=== PATIENT | male | born 1965 | race American Indian/Alaskan Native ===

== ENCOUNTER 2021-12-25 09:40 | Emergency (ER) | payer SELFPAY ==
[2021-12-25] MEDS ORDERED: dexAMETHasone 20 MG/5 ML VIAL IV ONE (12:51)
[2021-12-25] MEDS ORDERED: hydrALAZINE 20 MG/1 ML INJ IV ONE (12:54)
--- NOTE | 2021-12-25 13:39 | XRay Report ---
CHEST 1 VIEW 12/25/2021 1:08 PM INDICATION / CLINICAL INFORMATION: COUGH. COMPARISON: 08/31/20 FINDINGS: SUPPORT DEVICES: None. HEART / MEDIASTINUM: No significant abnormality. LUNGS / PLEURA: No significant pulmonary or pleural abnormality. No pneumothorax. ADDITIONAL FINDINGS: No significant additional findings. IMPRESSION: 1. No acute findings. No change. Signer Name: Rox Evans MD Signed: 12/25/2021 1:35 PM Workstation Name: [id number]
--- NOTE | 2021-12-25 13:50 | Cat Scan Report ---
CT HEAD WITHOUT CONTRAST INDICATION / CLINICAL INFORMATION: headache. TECHNIQUE: All CT scans at this location are performed using CT dose reduction for ALARA by means of automated exposure control. COMPARISON: CT and MRI dated 08/31/20 FINDINGS: HEMORRHAGE: None. EXTRA-AXIAL SPACES: Normal in size and morphology for the patient's age. VENTRICULAR SYSTEM: Normal in size and morphology for the patient's age. CEREBRAL PARENCHYMA: Moderate white matter hypodensities likely representing microangiopathy and smal l chronic infarcts. No acute territorial infarct. MIDLINE SHIFT / HERNIATION: None. CEREBELLUM / BRAINSTEM: No significant abnormality. ORBITS: Normal as visualized. SOFT TISSUES: No significant abnormality. SKULL: No significant abnormality. PARANASAL SINUSES / MASTOID AIR CELLS: Normal as visualized. ADDITIONAL FINDINGS: None. IMPRESSION: 1. No acute intracranial abnormality. 2. Chronic and age-related findings are unchanged. Signer Name: Rox Evans MD Signed: 12/25/2021 1:45 PM Workstation Name: [id number]
[2021-12-25 14:28] LABS: Basophils % (Auto) 0.4 % (0.0-1.8); Eosinophils # (Auto) 0.3 K/mm3 (0.0-0.4); Eosinophils % (Auto) 3.2 % (0.0-4.3); Hematocrit 43.6 % (35.5-45.6); Hemoglobin 14.8 gm/dl (11.8-15.2); Lymphocytes # (Auto) 2.6 K/mm3 (1.2-5.4); Mean Corpuscular HGB Conc 34 % (32-34); Mean Corpuscular Volume 89 fl (84-94); Monocytes # (Auto) 0.4 K/mm3 (0.0-0.8); Monocytes % (Auto) 4.6 % (0.0-7.3); Platelet Count 243 K/mm3 (140-440); Red Blood Count 4.88 M/mm3 (3.65-5.03); Red Cell Distribution Width 13.5 % (13.2-15.2)
[2021-12-25 14:42] LABS: Alanine Aminotransferase 12 units/L (7-56); Albumin 4.9 g/dL (3.9-5); Blood Urea Nitrogen 12 mg/dL (9-20); Calcium 9.6 mg/dL (8.4-10.2); Hemolysis Index 9
[2021-12-25 14:43] LABS: BUN/Creatinine Ratio 17
--- NOTE | 2021-12-25 14:58 | Emergency Department Report ---
ED General Adult HPI - General Chief complaint: Eye Problems Stated complaint: SWOLLEN EYEYS Source: patient, family Mode of arrival: Ambulatory Limitations: No Limitations - History of Present Illness Initial comments: Patient is a 56-year-old -[place] male with a history of stroke and hypertension, and was noncompliant with medications presents to the ED with complaint of bilateral eyelid swelling for the last 3 days. Patient states that the symptoms have worsened in the last 24 hours. Patient states that he is unsure of the etiology of the swelling of the eyelids. Patient denies vision loss or vision changes, nausea and vomiting, traumatic injury, fall, headache, nasal and sinus congestion, fever, chills, cough, sore throat, neck pain, back pain, dizziness, numbness and tingling or weakness of upper and lower extremities bilaterally. MD Complaint: Bilateral eyelid swelling -: Sudden, days(s) (3) Location: face (Bilateral eyelid swelling) Radiation: non-radiation Severity scale (0 -10): 0 Consistency: constant Improves with: none Worsens with: none Associated Symptoms: denies other symptoms. denies: chest pain, cough, diaph oresis, fever/chills, headaches, loss of appetite, malaise, rash, seizure, shortness of breath, syncope, weakness Treatments Prior to Arrival: none - Related Data Previous Rx's Medication Instructions Recorded Last Taken Type Aspirin 325 mg PO QDAY #30 tablet 09/01/20 Unknown Rx AtorvaSTATin [Lipitor] 40 mg PO QHS #30 tablet 12/25/21 Unknown Rx Metoprolol [Lopressor TAB] 25 mg PO BID #30 tablet 12/25/21 Unknown Rx Valsartan [Diovan] 160 mg PO BID #60 tablet 12/25/21 Unknown Rx hydroCHLOROthiazide [HCTZ] 25 mg PO QDAY #30 tablet 12/25/21 Unknown Rx predniSONE [Deltasone] 40 mg PO QDAY #10 tab 12/25/21 Unknown Rx Allergies Allergy/AdvReac Type Severity Reaction Status Date / Time No Known Allergies Allergy Unverified 08/31/20 07:34 ED Review of Systems ROS: Stated complaint: SWOLLEN EYEYS Other details as noted in HPI Constitutional: denies: chills, fever Eyes: other (Bilateral eyelid swelling and tearing). denies: eye pain, eye discharge, vision change ENT: denies: ear pain, throat pain Respiratory: denies: cough, orthopnea, shortness of breath, wheezing Cardiovascular: denies: chest pain, palpitations, edema, syncope Endocrine: no symptoms reported Gastrointestinal: denies: abdominal pain, nausea, vomiting, diarrhea Genitourinary: denies: urgency, dysuria Musculoskeletal: denies: back pain, joint swelling, arthralgia Skin: denies: rash, lesions Neurological: denies: headache, weakness, paresthesias Psychiatric: denies: anxiety, depression Hematological/Lymphatic: denies: easy bleeding, easy bruising ED Past Medical Hx - Past Medical History Hx Hypertension: Yes Hx CVA: Yes Hx Heart Attack/AMI: No Hx Liver Disease: No Hx Renal Disease: No Hx Asthma: Yes (childhood only) - Social History Smoking Status: Current Every Day Smoker - Medications Home Medications: Home Medications Medication Instructions Recorded Confirmed Last Taken Type Aspirin 325 mg PO QDAY #30 tablet 09/01/20 Unknown Rx AtorvaSTATin [Lipitor] 40 mg PO QHS #30 tablet 12/25/21 Unknown Rx Metoprolol [Lopressor TAB] 25 mg PO BID #30 tablet 12/25/21 Unknown Rx Valsartan [Diovan] 160 mg PO BID #60 tablet 12/25/21 Unknown Rx hydroCHLOROthiazide [HCTZ] 25 mg PO QDAY #30 tablet 12/25/21 Unknown Rx predniSONE [Deltasone] 40 mg PO QDAY #10 tab 12/25/21 Unknown Rx ED Physical Exam - General Limitations: No Limitations General appearance: alert, in no apparent distress - Head Head exam: Present: atraumatic, normocephalic, normal inspection - Eye Eye exam: Present: normal appearance, PERRL, EOMI, other (Bilateral eyelid swelling) Pupils: Present: normal accommodation - ENT ENT exam: Present: normal exam, normal orophraynx, mucous membranes moist, TM's normal bilaterally, normal external ear exam - Neck Neck exam: Present: normal inspection, full ROM. Absent: tenderness - Respiratory Respiratory exam: Present: normal lung sounds bilaterally. Absent: respiratory distress, wheezes, rales, rhonchi, chest wall tenderness, accessory muscle use, decreased breath sounds, prolonged expiratory - Cardiovascular Cardiovascular Exam: Present: regular rate, normal rhythm, normal heart sounds. Absent: systolic murmur, diastolic murmur, rubs, gallop - GI/Abdominal GI/Abdominal exam: Present: soft, normal bowel sounds. Absent: distended, tenderness, guarding, hyperactive bowel sounds, hypoactive bowel sounds, organomegaly - Rectal Rectal exam: Present: deferred - Extremities Exam Extremities exam: Present: normal inspection, full ROM, normal capillary refill - Back Exam Back exam: Present: normal inspection, full ROM. Absent: tenderness, CVA tenderness (R), CVA tenderness (L), muscle spasm, paraspinal tenderness, vertebral tenderness - Neurological Exam Neurological exam: Present: alert, oriented X3, CN II-XII intact, normal gait, reflexes normal - Psychiatric Psychiatric exam: Present: normal affect, normal mood - Skin Skin exam: Present: warm, dry, intact, normal color. Absent: rash ED Course Vital Signs 12/25/21 10:16 Temperature 97.8 F Pulse Rate 70 Respiratory 16 Rate Blood Pressure 203/120 [Right] O2 Sat by Pulse 98 Oximetry ED Medical Decision Making - Lab Data Result diagrams: 12/25/21 13:01 12/25/21 13:01 - Radiology Data Radiology results: report reviewed, [place] [address] Cat Scan Report Signed Patient: MARTI HERNANDEZ MR# : [id number] : 1965 Acct:[id number] Age/Sex: 56 / M ADM Date: 12/25/21 Loc: ED Attending Dr: Ordering Physician: JEFFERY DAVIS Date of Service: 12/25/21 Procedure(s): CT head/brain wo con Accession Number(s): [id number] cc: JEFFERY DAVIS CT HEAD WITHOUT CONTRAST INDICATION / CLINICAL INFORMATION: headache. TECHNIQUE: All CT scans at this location are performed using CT dose reduction for ALARA by means of automated exposure control. COMPARISON: CT and MRI dated 08/31/20 FINDINGS: HEMORRHAGE: None. EXTRA-AXIAL SPACES: Normal in size and morphology for the patient's age. VENTRICULAR SYSTEM: Normal in size and morphology for the patient's age. 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 No acute territorial infarct. MIDLINE SHIFT / HERNIATION: None. CEREBELLUM / BRAINSTEM: No significant abnormality. ORBITS: Normal as visualized. SOFT TISSUES: No significant abnormality. SKULL: No significant abnormality. PARANASAL SINUSES / MASTOID AIR CELLS: Normal as visualized. ADDITIONAL FINDINGS: None. IMPRESSION: 1. No acute intracranial abnormality. 2. Chronic and age-related findings are unchanged. Signer Name: Rox Evans MD Signed: 12/25/2021 1:45 PM Workstation Name: [id number] Transcribed By: LEONEL Dictated By: Vahid Evans MD Electronically Authenticated By: Vahid Evans MD Signed Date/Time: 12/25/21 134 DD/ 134 TD/TT: [facility] [address] [place] [address] XRay Report Signed Patient: MARTI HERNANDEZ MR# : [id number] : 1965 Acct:[id number] Age/Sex: 56 / M ADM Date: 12/25/21 Loc: ED Attending Dr: Ordering Physician: JEFFERY DAVIS Date of Service: 12/25/21 Procedure(s): XR chest 1V ap Accession Number(s): [id number] cc: JEFFERY DAVIS Fluoro Time In Minutes: CHEST 1 VIEW 12/25/2021 1:08 PM INDICATION / CLINICAL INFORMATION: COUGH. COMPARISON: 08/31/20 FINDINGS: SUPPORT DEVICES: None. HEART / MEDIASTINUM: No significant abnormality. LUNGS / PLEURA: No significant pulmonary or pleural abnormality. No pneumothorax. ADDITIONAL FINDINGS: No significant additional findings. IMPRESSION: 1. No acute findings. No change. Signer Name: Rox Evans MD Signed: 12/25/2021 1:35 PM Workstation Name: [id number] Transcribed By: DT Dictated By: Vahid Evans MD Electronically Authenticated By: Vahid Evans MD Signed Date/Time: 12/25/211334 DD/ 33 TD/TT: - Medical Decision Making This is a 56-year-old -[place] male with a history of stroke and hypertension, and was noncompliant with medications presents to the ED with complaint of bilateral eyelid swelling for the last 3 days. Patient states that the symptoms have worsened in the last 24 hours. Patient states that he is unsure of the etiology of the swelling of the eyelids. In the ED, patient is alert and oriented x3 and is not in any distress but hypertensive in triage. Lab test results were reviewed and are all nonactionable. Chest x-ray showed no acute cardiopulmonary abnormalities or pneumonitis. 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 No acute territorial infarct. - Differential Diagnosis Allergic reaction; URI; uncontrolled hypertension Critical care attestation.: If time is entered above; I have spent that time in minutes in the direct care of this critically ill patient, excluding procedure time. ED Disposition Clinical Impression: Swelling of lower eyelid, Uncontrolled stage 2 hypertension, Noncompliance with medication regimen Acute allergic reaction Qualifiers: Encounter type: initial encounter Qualified Code(s): T78.40XA - Allergy, unspecified, initial encounter Disposition: 01 HOME / SELF CARE / HOMELESS Is pt being admited?: No Does the pt Need Aspirin: No Condition: Stable Instructions: Hypertension (ED), Hypertension, Adult, [id number], Allergic Conjunctivitis, Adult, [id number] Additional Instructions: All lab test results were reviewed and are all nonactionable. Chest x-ray showed no acute cardiopulmonary abnormalities or pneumonitis. Head CT scan without contrast showed no acute intracranial abnormalities but changes consistent with previous stroke. Your symptoms are likely due to environmental allergies or acute allergic reaction to an unknown substance. Therefore take medications with food, drink plenty of fluids and follow-up with your primary care physician in 7 to 10 days for reevaluation. Return to the ED immediately if symptoms get worse. Prescriptions: AtorvaSTATin [Lipitor] 40 mg PO QHS #30 tablet predniSONE [Deltasone] 40 mg PO QDAY #10 tab Valsartan [Diovan] 160 mg PO BID #60 tablet hydroCHLOROthiazide [HCTZ] 25 mg PO QDAY #30 tablet Metoprolol [Lopressor TAB] 25 mg PO BID #30 tablet Referrals: [facility] [Provider Group] - 7-10 days Time of Disposition: 15:01 Print Language: ARABIC
[2021-12-25 15:32] VITALS: BP 170/112
== END 2021-12-25 15:32 | disposition home or self-care (01) ==
LOC: ED 09:40
DX: T78.40XA Allergy, unspecified, initial encounter (principal); H02.849 Edema of unspecified eye, unspecified eyelid; I10 Essential (primary) hypertension; Z91.14 Patient's other noncompliance with medication regimen; J45.909 Unspecified asthma, uncomplicated; Z86.73 Personal history of transient ischemic attack (TIA), and cerebral infarction without residual deficits; Z79.899 Other long term (current) drug therapy; X58.XXXA Exposure to other specified factors, initial encounter
CPT/HCPCS: 36415; 70450; 71045; 80053; 85025; 96374; 96375; 99284; J0360; J1100